=== PATIENT | female | born 1990 | race Caucasian/White ===

== ENCOUNTER 2016-10-23 07:11 | Day surgery (SDC) | payer OTHER ==
[~2016-10-23 07:11] MED LIST: FENTANYL 250 MCG/5 ML AMP IV PRN; LACTATED RINGERS 1,000 ML IV SCH; LIDOCAINE Viscous 2% 15 ML UDCUP PO PRN; MIDAZOLAM HCL 5 MG/5 ML VIAL IV PRN; ONDANSETRON 4 MG/2ML 2 ML VIAL IV ONE
[2016-10-23] MEDS ORDERED: ONDANSETRON 4 MG/2ML 2 ML VIAL ONE (07:50)
[2016-10-23] MEDS ORDERED: FENTANYL 100 MCG/2 ML VIAL ONE (08:16)
[2016-10-23] MEDS ORDERED: MIDAZOLAM HCL 5 MG/5 ML VIAL ONE (08:16)
[2016-10-23] MEDS ORDERED: LIDOCAINE Viscous 2% 15 ML UDCUP ONE (08:17)
[2016-10-23] MEDS ORDERED: FENTANYL 5 ML ONE (08:19)
[2016-10-23 13:17] LABS: HELICOBACTER PYLORII DETECTION NEGATIVE (NEGATIVE)
--- NOTE | 2016-10-27 09:40 | SURGPATH ---
[facility] [address] [place] [id number] Patient Name: MADIHA ARAYA MR#: [id number] : 1990 Gender: F Specimen #: [id number] Collected: 10/23/2016 Received: 10/26/2016 Reported: 10/27/2016 Submitting Phys: AROLDO IGLESIAS Copy To Phys: [facility] MIKE BECKER Clinical History / Pre-Operative Diagnosis: GASTRIC PAIN; NAUSEA; VOMITING; RULE OUT GIARDIA, CELIAC SPRUE AND GASTRITIS Specimen Source / Surgical Procedure Performed: #1-DUODENAL BIOPSY; #2-ANTRAL BIOPSY Interpretation: 1. DUODENUM, BIOPSY: - NO PATHOLOGIC ABNORMALITY 2. STOMACH, BIOPSY: - NO PATHOLOGIC ABNORMALITY Electronically Signed Out Miah Yang M.D. Gross Description: #1 The specimen is received in a formalin filled container labeled with the patient's name and "duodenal". Three mendez biopsies are 0.2, 0.3 and 0.4 cm. Totally embedded in cassette #1. #2 The specimen is received in a formalin filled container labeled with the patient's name and "antral biopsy". A single mendez biopsy is 0.4 cm. Totally embedded in cassette #2. Jorge Stanley PArun Microscopic Description: Microscopic performed. 1: 34472 2: 67996 R11.2
== END 2016-10-23 09:30 | disposition home or self-care (01) ==
LOC: SDC 07:11
PROVIDERS: ATTEND Internal Medicine Gastroenterology
PROC: 0DB98ZX Excision of Duodenum, Via Natural or Artificial Opening Endoscopic, Diagnostic (ICD-10-PCS; principal; 2016-10-23)
PROC: 0DB68ZX Excision of Stomach, Via Natural or Artificial Opening Endoscopic, Diagnostic (ICD-10-PCS; 2016-10-23)
DX: K29.70 Gastritis, unspecified, without bleeding (principal); K29.80 Duodenitis without bleeding; F32.9 Major depressive disorder, single episode, unspecified; R51 Headache; Z87.11 Personal history of peptic ulcer disease
CPT/HCPCS: 87081; 43239; J3010; J2250; A9270; J2405